=== PATIENT | male | born 1965 | race African-American/Black ===

== ENCOUNTER 2017-10-20 17:34 | Emergency (ER) | payer SELFPAY ==
[~2017-10-20] VITALS: Ht 190.5 cm; Wt 95.5 kg
[2017-10-20 17:37] VITALS: BP 146/92
== END 2017-10-20 19:22 | disposition home or self-care (01) ==
LOC: ED 18:52
DX: S81.811A Laceration without foreign body, right lower leg, initial encounter (principal); E11.9 Type 2 diabetes mellitus without complications; I10 Essential (primary) hypertension; M10.9 Gout, unspecified; X58.XXXA Exposure to other specified factors, initial encounter; Y93.89 Activity, other specified; Y92.098 Other place in other non-institutional residence as the place of occurrence of the external cause; Y99.8 Other external cause status
CPT/HCPCS: 99282

== ENCOUNTER 2018-06-20 15:39 | Emergency (ER) | payer SELFPAY ==
[~2018-06-20] VITALS: Ht 190.5 cm; Wt 101.6 kg
[2018-06-20 15:41] VITALS: BP 177/114
[2018-06-20] MEDS ORDERED: FLUORESCEIN OPHTHALMIC 1 MG STRIP EACHEYE ONE (16:00)
[2018-06-20] MEDS ORDERED: PROPARACAINE OPHTH 0.5%, 15ML EACHEYE ONE (16:00)
[2018-06-20] MEDS ORDERED: FLUORESCEIN OPHTHALMIC 1 MG STRIP ONE (17:43)
[2018-06-20] MEDS ORDERED: PROPARACAINE OPHTH 0.5%, 15ML ONE (17:43)
== END 2018-06-20 18:13 | disposition home or self-care (01) ==
LOC: ED 18:07
DX: H10.33 Unspecified acute conjunctivitis, bilateral (principal); Z76.0 Encounter for issue of repeat prescription; I10 Essential (primary) hypertension; E11.9 Type 2 diabetes mellitus without complications
CPT/HCPCS: 99283

== ENCOUNTER 2020-04-27 18:21 | Emergency (ER) | payer OTHER ==
[~2020-04-27] VITALS: Ht 190.5 cm; Wt 97.8 kg
--- NOTE | 2020-04-27 19:07 | NUR ---
PT RESTING ON GURNEY, PROVIDED PT WITH WARM BALNKET, MONIOTRS APPLIED, SIDRAILS UP X2, CALL LIGHT WITHIN REACH
[2020-04-27] MEDS ORDERED: KETOROLAC 60 MG/2 ML ONE (19:11)
--- NOTE | 2020-04-27 19:18 | NUR ---
PT MEDICATED PER MAR
[2020-04-27] MEDS ORDERED: KETOROLAC 30 MG/1 ML IM ONE (19:30)
[2020-04-27 19:43] LABS: BASOPHILS # (AUTO) 0.02 x10^3/uL (0-0.1); BASOPHILS % (AUTO) 0 % (0-1); EOSINOPHILS # (AUTO) 0.11 x10^3/uL (0-0.4); EOSINOPHILS % (AUTO) 1 % (1-7); LYMPHOCYTES # (AUTO) 1.62 x10^3/uL (1-3.4); LYMPHOCYTES % (AUTO) 19 % (22-44); MD NO; MEAN CORPUSCULAR HEMOGLOBIN 26.1 pg (27.5-34.5); MEAN CORPUSCULAR HGB CONC 32.3 g/dL (33.2-36.2); MEAN CORPUSCULAR VOLUME 80.8 fL (81-97); MEAN PLATELET VOLUME 8.2 fL (7.4-10.4); MONOCYTES # (AUTO) 0.81 x10^3/uL (0.2-0.8); MONOCYTES % (AUTO) 9 % (2-9); NEUTROPHILS # (AUTO) 6.13 x10^3/uL (1.8-6.8); NEUTROPHILS % (AUTO) 70 % (42-75); PLATELET COUNT 267 x10^3/uL (130-400); RED BLOOD COUNT 5.17 x10^6/uL (4.38-5.82); RED CELL DISTRIBUTION WIDTH 13.9 % (9.4-14.8)
[2020-04-27 19:49] LABS: ALBUMIN 3.7 g/dL (3.4-5.0); ANION GAP 5 mmol/L (5-15); CHLORIDE 105 mmol/L (98-107); CREATININE 1.13 mg/dL (0.7-1.3)
[2020-04-27 20:19] VITALS: BP 133/88
== END 2020-04-27 20:29 | disposition home or self-care (01) ==
LOC: ED 20:23
DX: S83.91XA Sprain of unspecified site of right knee, initial encounter (principal); I10 Essential (primary) hypertension; E11.9 Type 2 diabetes mellitus without complications; M10.9 Gout, unspecified; W19.XXXA Unspecified fall, initial encounter; Y93.01 Activity, walking, marching and hiking; Y92.238 Other place in hospital as the place of occurrence of the external cause; Y99.8 Other external cause status
CPT/HCPCS: 36415; 73564; 80048; 82040; 84550; 85025; 96372; 99284; J1885

== ENCOUNTER 2020-06-13 13:07 | Emergency (ER) | payer OTHER ==
[~2020-06-13] VITALS: Ht 190.5 cm; Wt 94.3 kg
[2020-06-13 13:15] VITALS: BP 131/93
--- NOTE | 2020-06-13 13:44 | NUR ---
MANAGER PRIMARY CARE: PT TO ROOM FROM LOBBY
[2020-06-13 14:23] LABS: BASOPHILS # (AUTO) 0.01 x10^3/uL (0-0.1); BASOPHILS % (AUTO) 0 % (0-1); EOSINOPHILS # (AUTO) 0.06 x10^3/uL (0-0.4); EOSINOPHILS % (AUTO) 1 % (1-7); LYMPHOCYTES # (AUTO) 1.88 x10^3/uL (1-3.4); LYMPHOCYTES % (AUTO) 23 % (22-44); MD NO; MEAN CORPUSCULAR HEMOGLOBIN 25.8 pg (27.5-34.5); MEAN CORPUSCULAR HGB CONC 31.6 g/dL (33.2-36.2); MEAN CORPUSCULAR VOLUME 81.4 fL (81-97); MEAN PLATELET VOLUME 8.2 fL (7.4-10.4); MONOCYTES # (AUTO) 0.06 x10^3/uL (0.2-0.8); MONOCYTES % (AUTO) 1 % (2-9); NEUTROPHILS # (AUTO) 6.12 x10^3/uL (1.8-6.8); NEUTROPHILS % (AUTO) 75 % (42-75); PLATELET COUNT 283 x10^3/uL (130-400); RED BLOOD COUNT 5.52 x10^6/uL (4.38-5.82); RED CELL DISTRIBUTION WIDTH 14.1 % (9.4-14.8)
[2020-06-13 14:25] LABS: ALBUMIN 4.1 g/dL (3.4-5.0); ANION GAP 10 mmol/L (5-15); CALCIUM 9.2 mg/dL (8.5-10.1); CHLORIDE 105 mmol/L (98-107); CREATININE 1.14 mg/dL (0.7-1.3)
== END 2020-06-13 15:03 | disposition home or self-care (01) ==
LOC: ED 14:50
DX: M10.061 Idiopathic gout, right knee (principal); M10.062 Idiopathic gout, left knee; M10.072 Idiopathic gout, left ankle and foot; M13.0 Polyarthritis, unspecified; I10 Essential (primary) hypertension; E11.9 Type 2 diabetes mellitus without complications
CPT/HCPCS: 36415; 80048; 82040; 84550; 85025; 99284